=== PATIENT | male | born 1960 | race Caucasian/White ===

== ENCOUNTER 2017-06-14 15:26 | Inpatient (IN) ==
[2017-06-14] MEDS ORDERED: 0.9 % SODIUM CHLORIDE 1,000 ML IV ONE (15:45)
--- NOTE | 2017-06-14 16:02 | Emergency Department Note ---
Weakness HPI - General Chief complaint: Weakness Stated complaint: SOB, Fever, Weakness Time Seen by Provider: 06/14/17 16:00 Source: patient Mode of arrival: ambulatory Limitations: no limitations - History of Present Illness HPI Narrative: 56-year-old male is sent over from the dialysis unit with a history of fever of 102 while on dialysis. He denies any chest pain, he does state that he quit smoking 3 months ago he's been coughing ever since, does have a slight headache , no nausea or vomiting, no diarrhea denies abdominal pain he does still urinate once a day and he denies urinary symptoms. No other symptoms other than generalized weakness. MD Complaint: generalized weakness - Related Data Home Medications Medication Instructions Recorded Confirmed Cyclobenzaprine HCl 10 mg PO HS 10/13/14 12/05/15 Lasix 40 mg PO BID 10/13/14 12/05/15 Levothyroxine 75 mcg PO DAILY 10/13/14 12/05/15 Nitrostat 0.4 mg SL Q5MIN 10/13/14 12/05/15 Proair Hfa 1 - 2 puff IH Q5HP PRN 10/13/14 12/05/15 Hailee-Lamont Tablet 1 tab PO DAILY 10/13/14 12/05/15 Senna 100 mg PO BID 10/13/14 12/05/15 Tamsulosin 0.4 mg PO DAILY 10/13/14 12/05/15 Venlafaxine 1 tab PO BID 10/13/14 12/05/15 amLODIPine 10 mg PO DAILY 10/13/14 12/05/15 Previous Rx's Medication Instructions Recorded Gabapentin [Neurontin] 300 mg PO TID #90 cap 10/14/14 Ondansetron [Zofran Odt] 4 mg PO Q4-6H PRN #10 tablet 10/03/15 HYDROmorphone HCL [Dilaudid] 4 mg PO Q4H #12 tablet 12/05/15 Cefuroxime [Ceftin] 500 mg PO Q12 #20 tablet 02/03/16 ropinirole 0.5 mg tablet 0.5 mg PO QHS #30 tab 07/04/16 omeprazole 20 mg capsule,delayed 20 mg PO QDAY #30 cap 12/03/16 release cinacalcet 30 mg tablet 30 mg PO QDAY #30 tab 03/18/17 carvedilol 12.5 mg tablet 12.5 mg PO BIDCC 30 Days #60 tab 05/29/17 Allergies Allergy/AdvReac Type Severity Reaction Status Date / Time No Known Drug Allergies Allergy Verified 05/21/16 10:37 Review of Systems All systems ED: reviewed and negative except as stated. Constitutional: Reports: fever, chills ENT ED: Denies: ear pain, throat pain Cardiovascular: Denies: chest pain, palpitations Respiratory: Reports: shortness of breath, cough Gastrointestinal: Denies: abdominal pain, nausea, vomiting Genitourinary: Denies: dysuria Musculoskeletal: Reports: back pain. 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 Absent: tenderness , meningismus, lymphadenopathy, thyromegaly Chest: Present: normal inspection, symmetric chest wall rise. Absent: tenderness Respiratory: Present: normal lung sounds bilaterally. Absent: respiratory distress, wheezes, accessory muscle use Cardiovascular: Present: regular rate, normal rhythm, tachycardia, normal heart sounds Abdominal: Present: soft, normal bowel sounds. Absent: distention, tenderness, guarding : Present: normal inspection Extremities: Present: normal inspection, full ROM. Absent: tenderness Back: Present: normal inspection. Absent: CVA tenderness (R), CVA tenderness (L ), paraspinal tenderness, spinous process tenderness, vertebral tenderness Neurological: Present: alert, oriented X3, CN II-XII intact Psychiatric: Present: normal affect Skin: Present: warm, dry, intact. Absent: rash Course Vital Signs Temperature 99.1 F H 06/14/17 15:28 Pulse Rate 101 H 03/17/18 15:28 Respiratory Rate 30 H 06/14/17 15:28 Blood Pressure 109/44 06/14/17 15:28 Pulse Oximetry (%) 89 L 06/14/17 15:28 Temperature 101.5 F H 06/14/17 18:11 Pulse Rate 92 H 06/14/17 18:04 Respiratory Rate 17 06/14/17 18:04 Blood Pressure 159/115 06/14/17 18:04 Pulse Oximetry (%) 97 06/14/17 18:04 Weakness - MDM Narrative Medical decision making narrative: laboratory studies showing a white count of 8000, however left shift and his lactic acid was elevated. Discussed with , and he will need to be hospitalized for further workup, monitoring. He did complete his dialysis, they chance 3-1/2 L of fluid, we gave him a liter of saline while he was here and his blood pressure was stable. Final diagnosis is fever undetermined etiology, sepsis by criteria plan he was started on antibiotics in the department, blood cultures were drawn, discussed with our hospitalist. CT scan reviewed. - Lab Data Lab results reviewed: Yes I reviewed the patient's lab results. Result diagrams: 06/14/17 15:40 06/14/17 15:40 Lab Results 06/14/17 06/14/17 06/14/17 Range/Units 15:40 15:40 15:40 WBC 8.3 (4.5-11.0) K/mcL RBC 3.00 L (4.50-5.90) M/mcL Hgb 10.5 L (13.5-16.5) g/dL Hct 30.4 L (41.0-55.0) % MCV 101.2 H (80.0-100.0) fL MCH 34.9 H (26.0-34.0) pg MCHC 34.4 (31.0-36.0) g/dL RDW 14.9 H (11.5-14.5) % Plt Count 141 (140-440) K/mcL MPV 6.7 L (7.4-10.4) fL Total Counted 100 Seg Neutrophils % 77 (38-78) % Band Neutrophils % 14 H (0-10) % Lymphocytes % 2 L (15-49) % Monocytes % (Manual) 6 (1-12) % Metamyelocytes % 1 H (0-0) % Platelet Estimate Normal (NORMAL) RBC Morphology Abnorm A (NORMAL) Polychromasia 1+ A (NONE SEEN) Macrocytosis 1+ A (NONE SEEN) VBG Lactic Acid 3.4 H (0.5-2.2) mmol/L Sodium 136 (133-145) mmol/L Potassium 4.1 (3.3-5.1) mmol/L Chloride 89 L (96-108) mmol/L Carbon Dioxide 28 (22-30) mmol/L Anion Gap 19.0 H (8-16) BUN 19 (6-20) mg/dl Creatinine 3.9 H (0.7-1.2) mg/dl GFR Calculation 16 Glucose 136 H (70-105) mg/dL Calcium 9.6 (8.6-10.4) mg/dl Total Bilirubin 0.7 (0.0-1.0) mg/dL AST 23 (0-37) U/l ALT 24 (0-40) U/l Alkaline Phosphatase 118 H (39-117) U/L C-Reactive Protein (0.0-0.8) mg/dl Total Protein 8.3 (5.9-8.4) gm/dL Albumin 4.9 (3.2-5.2) gm/dL Globulin 3.4 (2.2-3.7) gm/dL Albumin/Globulin Ratio 1.4 (1.0-2.3) Urine Color Urine Appearance Urine pH (5.0-9.0) Ur Specific [place] (1.000-1.035) Urine Protein (NEG) mg/dL Urine Glucose (UA) (NEG) mg/dL Urine Ketones (NEG) mg/dL Urine Occult Blood (<0.03) mg/dL Urine Nitrate (NEG) Urine Bilirubin (NEG) mg/dL Urine Urobilinogen (NEG) mg/dL Ur Leukocyte Esterase (NEG) /uL Urine RBC (0-1) /hpf Urine WBC (0-4) /hpf Ur Squamous Epith Cells (0-4) /hpf Urine Bacteria (0) /hpf Urine Sperm (ABSENT) /hpf Ur Culture Indicated? 06/14/17 06/14/17 Range/Units 15:40 17:16 WBC (4.5-11.0) K/mcL RBC (4.50-5.90) M/mcL Hgb (13.5-16.5) g/dL Hct (41.0-55.0) % MCV (80.0-100.0) fL MCH (26.0-34.0) pg MCHC (31.0-36.0) g/dL RDW (11.5-14.5) % Plt Count (140-440) K/mcL MPV (7.4-10.4) fL Total Counted Seg Neutrophils % (38-78) % Band Neutrophils % (0-10) % Lymphocytes % (15-49) % Monocytes % (Manual) (1-12) % Metamyelocytes % (0-0) % Platelet Estimate (NORMAL) RBC Morphology (NORMAL) Polychromasia (NONE SEEN) Macrocytosis (NONE SEEN) VBG Lactic Acid (0.5-2.2) mmol/L Sodium (133-145) mmol/L Potassium (3.3-5.1) mmol/L Chloride (96-108) mmol/L Carbon Dioxide (22-30) mmol/L Anion Gap (8-16) BUN (6-20) mg/dl Creatinine (0.7-1.2) mg/dl GFR Calculation Glucose (70-105) mg/dL Calcium (8.6-10.4) mg/dl Total Bilirubin (0.0-1.0) mg/dL AST (0-37) U/l ALT (0-40) U/l Alkaline Phosphatase (39-117) U/L C-Reactive Protein 3.4 H (0.0-0.8) mg/dl Total Protein (5.9-8.4) gm/dL Albumin (3.2-5.2) gm/dL Globulin (2.2-3.7) gm/dL Albumin/Globulin Ratio (1.0-2.3) Urine Color Yellow Urine Appearance Hazy Urine pH 7.0 (5.0-9.0) Ur Specific [place] 1.016 (1.000-1.035) Urine Protein 100 A (NEG) mg/dL Urine Glucose (UA) 150 A (NEG) mg/dL Urine Ketones Neg (NEG) mg/dL Urine Occult Blood Neg (<0.03) mg/dL Urine Nitrate Neg (NEG) Urine Bilirubin Neg (NEG) mg/dL Urine Urobilinogen Neg (NEG) mg/dL Ur Leukocyte Esterase Neg (NEG) /uL Urine RBC 23 H (0-1) /hpf Urine WBC 6 H (0-4) /hpf Ur Squamous Epith Cells < 1 (0-4) /hpf Urine Bacteria 0 (0) /hpf Urine Sperm Present A (ABSENT) /hpf Ur Culture Indicated? Yes - Radiology Data Radiology results reviewed: Yes I reviewed the patient's radiology results. Disposition Pt seen by DIGITAL MARKETING ASSOCIATE/PA only: No Clinical Impression: Sepsis, Renal failure, ESRD (end stage renal disease) on dialysis Disposition: Xfer As Inpt ([facility]) Condition: Fair
[2017-06-14] MEDS ORDERED: ACETAMINOPHEN 325 MG TABLET PO ONE (16:04)
[2017-06-14 16:13] LABS: Mean Cell Volume 101.2 fL (80.0-100.0); Mean Corpuscular HGB Conc 34.4 g/dL (31.0-36.0); Mean Corpuscular Hemoglobin 34.9 pg (26.0-34.0); Platelet Count 141 K/mcL (140-440); Red Cell Distribution Width 14.9 % (11.5-14.5)
--- NOTE | 2017-06-14 16:15 | XRay Report ---
INDICATION: Fever. Difficulty breathing. TECHNIQUE: AP chest x-ray,portable semiupright COMPARISON: Previous examinations dated 05/22/2016, 12/05/2015 FINDINGS:Previous median sternotomy. Lungs are negative. No parenchymal infiltrate or mass. Mild cardiomegaly is unchanged. No pulmonary edema. No pulmonary congestion. No evidence for congestive heart failure. No pleural fluid. [place] and mediastinum are negative IMPRESSION: 1. Cardiomegaly, unchanged 2. No acute abnormality. Interpreted and Authenticated by: Rivera Diop 06/14/17
[2017-06-14 16:41] LABS: ALT/SGPT 24 U/l (0-40); Albumin 4.9 gm/dL (3.2-5.2); Albumin/Globulin Ratio 1.4 (1.0-2.3); Alkaline Phosphatase 118 U/L (39-117); Blood Urea Nitrogen 19 mg/dl (6-20)
[2017-06-14 16:42] LABS: Band Neutrophils % 14 % (0-10); Lymphocytes % 2 % (15-49); Macrocytosis 1+ (NONE SEEN); Metamyelocytes % 1 % (0-0); Monocytes % (Manual) 6 % (1-12); Platelet Estimate NORMAL (NORMAL); RBC Morphology ABNORM (NORMAL); Segmented Neutrophils % 77 % (38-78)
[2017-06-14] MEDS ORDERED: cefTRIAXone 1 GM VIAL IV ONE ×2 (16:50→21:30)
[2017-06-14] MEDS ORDERED: IBUPROFEN 600 MG TABLET PO ONE (17:32)
[2017-06-14 17:45] LABS: Appearance,Urine HAZY; Color,Urine YELLOW; Protein,Urine 100 mg/dL (NEG); Specific Gravity,Urine 1.016 (1.000-1.035)
[2017-06-14 17:46] LABS: Bacteria,Urine 0 /hpf (0); Bilirubin,Urine NEG (NEG); Glucose,Urine (UA) 150 mg/dL (NEG); Leukocyte Esterase,Urine NEG /uL (NEG); Sperm,Urine PRESENT /hpf (ABSENT); Urine Blood NEG mg/dL (<0.03); Urine RBC 23 /hpf (0-1); Urine Squamous Epithelial Cell < 1 /hpf (0-4); Urine WBC 6 /hpf (0-4); Urobilinogen,Urine NEG (NEG)
--- NOTE | 2017-06-14 18:04 | Cat Scan Report ---
CLINICAL INFORMATION: Weakness. Dyspnea. Kidney disease. COMPARISON: 12/05/2015 TECHNIQUE: Axial images were obtained through the abdomen and pelvis. Sagittally and coronally reformatted images. FINDINGS: Lung bases are negative. No parenchymal infiltrate or mass. No pleural fluid. There is mild cardiomegaly. No pericardial fluid. Liver is negative to limits of noncontrast enhanced examination. There are surgical clips in the gallbladder fossa. No dilated bile ducts. Spleen is enlarged. Spleen measures 15.1 x 12.5 x 5.0 cm. Spleen is slightly larger than on previous examination. Negative pancreas. No pancreatic mass. No peripancreatic abnormality. Negative kidneys. There are vascular calcifications in both kidneys. No hydronephrosis. No detectable mass. There is extensive calcification of the abdominal aorta. No abdominal aortic aneurysm. Common iliac arteries, external iliac arteries, common femoral arteries are calcified. Colon is negative. No diverticulitis. No detectable colonic mass. No appendicitis. No mechanical small bowel obstruction. There is a 3 cm umbilical hernia defect. There is mesenteric fat within this hernia. No herniated bowel. No retroperitoneal or mesenteric adenopathy. No biliary or portal venous gas. No pneumatosis. No intra-abdominal abscess or free pelvic fluid No lumbar compression fractures. There are bilateral L5 pars defects without significant spondylolisthesis. Sacrum and pelvis are negative. IMPRESSION: 1. Mild splenomegaly 2. Small umbilical hernia containing only mesenteric fat 3. Extensive calcified atherosclerotic plaque. No abdominal aortic aneurysm The exam was performed using radiation dose optimization techniques including, but not limited to, automated exposure control, adjustment of the mA and/or kV according to patient size and use of iterative reconstruction technique. Interpreted and Authenticated by: Rivera Diop 06/14/17
[2017-06-14 18:07] LABS: C-Reactive Protein 3.4 mg/dl (0.0-0.8)
[2017-06-14] MEDS ORDERED: VANCOMYCIN 1,500 MG in 0.9 % SODIUM CHLORIDE 500 ML IV ONE (18:47)
--- NOTE | 2017-06-14 18:56 | Internal Med History&Physical ---
Medical - H&P: HPI Patient information: Note initiated : 06/14/17 at 6:52 pm Service Date, if different from initiated Date: [] Patient: Hardeep Diaz a 56 y/o M admitted on for SOB, Fever, Weakness. Chief Complaint: [] History of present illness: Mr. Diaz is a 56 year old Male with h/o End stage renal disease, who presents to the ER from the dialysis unit with complaints of fever and weakness. The patient reports he was doing okay until last night, when he woke up this morning he noticed that he was short of breath and having fever and chills, he also had back pain and pain in the left side of the hip associated with numbness in the left leg. The patient notes that this fever is associated with chills, he has been having some chronic cough. The patient went for his dialysis session, but he noted him to be febrile. He was also noted to be short of breath he was therefore sent to the emergency room after he completed his dialysis session for evaluation. In the ER the patient was noted to be febrile, with a temperature of more than 103. Tachycardic heart rate between 9200, blood pressure was normal, he was saturating more than 90% on 2 L of oxygen, respiratory between 20-30. Chest x- ray was reported as negative. The patient had a normal WBC count but had more than 10% bands hemoglobin 10.5 platelet 141. Basic metabolic profile unremarkable, UA had some RBCs and a few WBCs, the patient underwent a CT abdomen and pelvis without contrast which was unrevealing for an acute process. The patient notes that the pain in the left hip is in the posterior aspect radiates down the leg was with movement better with rest. This is associated with decreased sensations in the entire left leg. He also attributes weakness in the left leg. He is unable to move the left leg however it is not sure during the history process whether there is true weakness or weakness secondary to pain. The patient also reported tingling in the medial three fingers of his palm. Patient was presented to the hospital for further management. During my evaluation in the ED I was concerned about this patient to have a possible epidural or paraspinal abscess or possibly hip arthritis. The patient is a dialysis patient and therefore we will try and get a stat MRI scan of the spine as well as the left hip as soon as possible Given that the patient has neurological weakness which he at least which is new , in the left leg, the patient would warrant an emergent evaluation. We do not have an commercial tire service technician available in this hospital at this time patient is okay to go to [facility] for this study done. According to the ED physician blood cultures were drawn, Rocephin 1 g given. I will add 1500 mg of vancomycin - Constitutional Constitutional: Present: chills, fatigue, fever(s) - EENT Eyes: Absent: diplopia, loss of vision, photophobia, other visual disturbances - Cardiovascular Cardiovascular: Present: diaphoresis, dyspnea on exertion. Absent: chest pain, palpatations, paroxysmal nocturnal dyspnea, pedal edema, slow heart rate, syncope - Respiratory Respiratory: Present: cough (chronic, ), dyspnea on exertion. Absent: wheezing , chest congestion - Gastrointestinal Gastrointestinal: Absent: constipation, dyspepsia, loose stools, nausea, vomiting - Genitourinary Genitourinary: Absent: urinary frequency (pt has minimal urine due to esrd status ), urinary hesitancy, urinary incontinence, urinary urgency - Musculoskeletal Musculoskeletal: Present: back pain, limited range of motion (left hip), radiating pain into limb, tingling - Integumentary Integumentary: Absent: wounds, jaundice - Neurological Neurological: Present: dizziness. Absent: headache(s), syncope, tremor(s), weakness - Psychiatric Psychiatric: Present: anxiety. Absent: confusion, depression - Endocrine Endocrine: Absent: polydipsia, polyphagia, polyuria - Hematologic/Lymphatic Hematologic/Lymphatic: Absent: easy bleeding - Allergic/Immunologic Allergic/Immunologic: Absent: uticaria, lip swelling Medical - H&P: PMH Medical history: Medical History Paronychia (Acute) Blister of great toe of left foot (Acute) Nausea & vomiting (Acute) Chest pain (Acute) Narcotic withdrawal (Acute) ESRD (end stage renal disease) on dialysis (Acute) Orbital cellulitis on left (Acute) Acute exacerbation of chronic obstructive airways disease (Acute) Congestive heart failure (Acute) Elevated troponin (Acute) Uncontrolled diabetes mellitus (Acute) Renal failure (Chronic) Neuropathy (Chronic) Coronary artery disease (Chronic) Urinary tract infection (Chronic) 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) Encounter for Weeks catheter removal (Chronic) Surgical history: h/o CABG Family history: reviewed and not pertinent Social history: Lives by himself Ex-smoker quit 3 months ago Denies any active substance use is trying to get a transplant however does have 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 Medical - H&P: Meds Home Medications Medication Instructions Recorded Confirmed Type Cyclobenzaprine HCl 10 mg PO HS 10/13/14 12/05/15 History Lasix 40 mg PO BID 10/13/14 12/05/15 History Levothyroxine 75 mcg PO DAILY 10/13/14 12/05/15 History Nitrostat 0.4 mg SL Q5MIN 10/13/14 12/05/15 History Proair Hfa 1 - 2 puff IH Q5HP PRN 10/13/14 12/05/15 History Hailee-Lamont Tablet 1 tab PO DAILY 10/13/14 12/05/15 History Senna 100 mg PO BID 10/13/14 12/05/15 History Tamsulosin 0.4 mg PO DAILY 10/13/14 12/05/15 History Venlafaxine 1 tab PO BID 10/13/14 12/05/15 History amLODIPine 10 mg PO DAILY 10/13/14 12/05/15 History Gabapentin [Neurontin] 300 mg PO TID #90 cap 10/14/14 12/05/15 Rx Ondansetron [Zofran Odt] 4 mg PO Q4-6H PRN #10 tablet 10/03/15 12/05/15 Rx Cefuroxime [Ceftin] 500 mg PO Q12 #20 tablet 02/03/16 Rx ropinirole 0.5 mg tablet 0.5 mg PO QHS #30 tab 07/04/16 Rx omeprazole 20 mg capsule,delayed 20 mg PO QDAY #30 cap 12/03/16 Rx release cinacalcet 30 mg tablet 30 mg PO QDAY #30 tab 03/18/17 Rx carvedilol 12.5 mg tablet 12.5 mg PO BIDCC 30 Days #60 tab 05/29/17 Rx Allergies Allergy/AdvReac Type Severity Reaction Status Date / Time No Known Drug Allergies Allergy Verified 05/21/16 10:37 Medical - H&P: Exam - Constitutional Vitals: Temp Pulse Resp BP Pulse Ox 101.5 F H 95 H 20 117/49 92 06/14/17 18:11 06/14/17 18:32 06/14/17 18:32 06/14/17 18:32 06/14/17 18:32 Exam: GENERAL: The patient is a well-developed, well-nourished in no apparent distress. Is alert and oriented x3. morbidly obese, febrile and flushed VITAL SIGNS: Reviewed and as noted elsewhere. HEENT: Head is normocephalic and atraumatic. Extraocular muscles are intact. Pupils are equal, round, and reactive to light. Nares appeared normal. Mouth appears any without lesions. Mucous membranes are dry NECK: Normal to inspection, Supple, No lymphadenopathy or thyromegaly. LUNGS: Air entry equal on both sides, no wheezing, crackles or rhonchi noted. No accessory muscles of respiration HEART: Regular rate and rhythm normal, S1 and S2 heard, no Gallop, S3 or Rub Noted, No Gross murmur heard. ABDOMEN: Soft, nontender, and nondistended. Positive bowel sounds. No hepatosplenomegaly was noted. EXTREMITIES: No cyanosis, clubbing, rash, lesions or edema. NEUROLOGIC: Cranial nerves II through XII are grossly intact. left leg strength 3/5 in ankle, knee and hip joints, right leg normal strength. LEft leg decreased sensation to light and dep touch compared to right leg. left hand had numbness on the medial three fingers along the distribution of median nerve, rest of the hand and strength was normal. No facial weakness, no dysarthria, strength in both upper extremity is normal no spinal tenderness, sone tenderness on the left lower back lateral to the spine, over si joint. PSYCHIATRIC: Normal affect, Normal Mood. Appropriate Behavior. SKIN: No ulceration or wounds noted, No jaundice, No rash noted. Medical - H&P: Reslt - Labs CBC & Chem 7: 06/14/17 15:40 06/14/17 15:40 Labs: Short CBC 06/14/17 Range/Units 15:40 WBC 8.3 (4.5-11.0) K/mcL Hgb 10.5 L (13.5-16.5) g/dL Hct 30.4 L (41.0-55.0) % Plt Count 141 (140-440) K/mcL BMP 06/14/17 15:40 Sodium 136 Potassium 4.1 Chloride 89 L Carbon Dioxide 28 BUN 19 Creatinine 3.9 H Glucose 136 H Calcium 9.6 Liver Function 06/14/17 Range/Units 15:40 Total Bilirubin 0.7 (0.0-1.0) mg/dL AST 23 (0-37) U/l ALT 24 (0-40) U/l Alkaline Phosphatase 118 H (39-117) U/L Albumin 4.9 (3.2-5.2) gm/dL Urine 06/14/17 Range/Units 17:16 Urine Color Yellow Urine Appearance Hazy Urine pH 7.0 (5.0-9.0) Ur Specific [place] 1.016 (1.000-1.035) Urine Protein 100 A (NEG) mg/dL Urine Glucose (UA) 150 A (NEG) mg/dL Medical - H&P: A/P - Narrative A/P Narrative: A/P Sepsis Lactic Acidosis Back pain/ Hip pain with new onset neurological weakness HTN CAD HLD DM h/o TIA in past Plan Given new onset weakness high-grade fever get a stat imaging. If needed we will call the spine surgeon for an urgent evaluation, the patient has high risk for bacteremia given that he is end-stage renal disease on dialysis. IV Rocephin 2 g IV vancomycin for now. IV fluids Await results of blood cultures, he is cleared antibiotics based on sensitivity Consider echocardiogram if patient noted to be bacteremic Trend lactate Resume home meds when verified Monitor on telemetry Insulin for glucose control using sliding scale Consult nephrology for ongoing dialysis based on the chest x-ray and electrolytes there is no urgent need for dialysis tonight DVT prophylaxis with heparin Carbohydrate and renal diet She does full code
[2017-06-14] MEDS ORDERED: VANCOMYCIN 500 MG VIAL ONE (19:11)
[2017-06-14] MEDS ORDERED: VANCOMYCIN PER PHARMACY IV ONE (20:44)
[2017-06-14] MEDS ORDERED: DEXTROSE 31 GM ORAL.SUSP PO PRN (20:44)
[2017-06-14] MEDS ORDERED: DEXTROSE 50% 50 ML VIAL IV PRN (20:44)
[2017-06-14] MEDS ORDERED: NALOXONE HCL 0.4 MG/ML VIAL IV PRN (20:44)
[2017-06-14] MEDS ORDERED: 0.9 % SODIUM CHLORIDE 1,000 ML IV SCH (20:44)
[2017-06-14] MEDS ORDERED: ONDANSETRON 4 MG/2 ML VIAL IV PRN (20:44)
[2017-06-14] MEDS ORDERED: GABAPENTIN 300 MG CAPSULE PO ONE (21:27)
[2017-06-14] MEDS: 0.9 % SODIUM CHLORIDE 10 ML SYRINGE IV SCH ×2 (22:08→23:16)
[2017-06-14] MEDS: oxyCODONE HCL 5 MG TABLET PO PRN (22:08)
[2017-06-14] MEDS: HEPARIN 5,000 UNIT/ML VIAL SQ SCH (22:08)
[2017-06-14] MEDS: CYCLOBENZAPRINE 10 MG TABLET PO SCH (22:10)
[2017-06-14] MEDS: INSULIN LISPRO 1 UNIT/0.01 ML UNIT SQ SCH (22:11)
[2017-06-14] MEDS: IPRATROPIUM/ALBUTEROL 3 ML AMPUL.NEB NEB SCH ×2 (23:14→23:15)
[2017-06-14] MEDS: ACETAMINOPHEN 325 MG TABLET PO PRN (23:58)
[2017-06-15] MEDS: oxyCODONE HCL 5 MG TABLET PO PRN ×3 (05:27→21:28)
[2017-06-15 06:24] LABS: Basophils # (Auto) 0 K/mcL (0.0-0.3); Basophils % (Auto) 0.2 % (0.0-2.0); Eosinophils # (Auto) 0 K/mcL (0.0-0.7); Eosinophils % (Auto) 0 % (0.0-7.0); Granulocytes % (Auto) 92.2 % (38.0-78.0); Lymphocytes # (Auto) 0.2 K/mcL (1.5-4.8); Lymphocytes % (Auto) 2.3 % (15.5-49.0); Mean Cell Volume 101.8 fL (80.0-100.0); Mean Corpuscular HGB Conc 34.9 g/dL (31.0-36.0); Mean Corpuscular Hemoglobin 35.6 pg (26.0-34.0); Monocytes # (Auto) 0.4 K/mcL (0.1-0.9); Monocytes % (Auto) 5.3 % (1.0-12.0); Platelet Count 106 K/mcL (140-440); RBC 2.28 M/mcL (4.50-5.90); Red Cell Distribution Width 15.5 % (11.5-14.5)
[2017-06-15 06:49] LABS: ALT/SGPT 27 U/l (0-40); Albumin 3.6 gm/dL (3.2-5.2); Albumin/Globulin Ratio 1.3 (1.0-2.3); Alkaline Phosphatase 80 U/L (39-117); Bilirubin,Direct < 0.2 mg/dL (0.0-0.3); Blood Urea Nitrogen 38 mg/dl (6-20); Gamma Glutamyl Transpeptidase 29 U/L (8-61); Uric Acid 4.2 mg/dL (2.5-8.0)
[2017-06-15] MEDS ORDERED: VANCOMYCIN PER PHARMACY IV SCH (07:15)
--- NOTE | 2017-06-15 08:32 | Nephrology Consult Note ---
History of Present Illness - Reason for Consult Patient information: Note initiated : 06/15/17 at 8:29 am Patient: Hardeep Acosta 56 y/o M admitted on 06/14/17 for SOB, Fever, Weakness. Chief Complaint: Back pain. Consult date: 06/15/17 end stage renal disease, hyperkalemia Requesting physician: Rosa Arguelles - Chief Complaint Back pain - History of Present Illness Hardeep acosta is a 56-year-old male with end stage renal disease on chronic hemodialysis (through left arm AV fistula, on TTS, at [facility], followed by Dr. uH ), sent to ED after dialysis for fever and admitted on 06/14/17. He also had back and left leg pain. He had full dialysis yesterday. Review of Systems Constitutional: fever(s), weakness Nose, mouth and throat: no headache(s), no neck pain Cardiovascular: no chest pain, no palpatations Respiratory: dyspnea, no wheezing Gastrointestinal: no abdominal pain, no nausea Genitourinary: no dysuria, no hematuria Musculoskeletal: back pain, radiating pain into limb (left) Integumentary: rash (left thigh), no jaundice Neurological: no confusion, no focal weakness Psychiatric: no anxiety, no depression Endocrine: no cold intolerance, no heat intolerance Hematologic/Lymphatic: no easy bleeding, no easy bruising Allergic/Immunologic: no tongue swelling, no uticaria Past History Past medical history: Medical History Paronychia (Acute) Blister of great toe of left foot (Acute) Nausea & vomiting (Acute) Chest pain (Acute) Narcotic withdrawal (Acute) ESRD (end stage renal disease) on dialysis (Acute) Orbital cellulitis on left (Acute) Acute exacerbation of chronic obstructive airways disease (Acute) Congestive heart failure (Acute) Elevated troponin (Acute) Uncontrolled diabetes mellitus (Acute) Renal failure (Chronic) Neuropathy (Chronic) Coronary artery disease (Chronic) Urinary tract infection (Chronic) 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) Encounter for Weeks catheter removal (Chronic) Past surgical history: Left arm AV fistula. CABG. Past family history: No history of kidney disease in his parents. Past social history: Ex-smoker. Medications and Allergies Home Medications Medication Instructions Recorded Confirmed Type Cyclobenzaprine HCl 10 mg PO HS 10/13/14 06/14/17 History Lasix 40 mg PO DAILY 10/13/14 06/14/17 History Levothyroxine 25 mcg PO DAILY 10/13/14 06/14/17 History Proair Hfa 1 - 2 puff IH Q4HP PRN 10/13/14 06/14/17 History Hailee-Lamont Tablet 1 tab PO DAILY 10/13/14 06/14/17 History Tamsulosin 0.4 mg PO DAILY 10/13/14 06/14/17 History amLODIPine 5 mg PO DAILY 10/13/14 06/14/17 History Carvedilol [Coreg] 25 mg PO BIDCC 06/14/17 06/14/17 History Escitalopram [Lexapro] 20 mg PO DAILY 06/14/17 06/14/17 History Fluticasone/Salmeterol [Advair 1 puff INH BID 06/14/17 06/14/17 History 250-50 Diskus] Gabapentin [Neurontin] 300 mg PO BID 06/14/17 06/14/17 History Insulin Aspart [Novolog] 10 units SQ AC 06/14/17 06/14/17 History Phoslo 1 tablet PO 5XD 06/14/17 06/14/17 History Pramipexole [Mirapex] 0.375 mg PO HS 06/14/17 06/14/17 History Allergies Allergy/AdvReac Type Severity Reaction Status Date / Time No Known Drug Allergies Allergy Verified 05/21/16 10:37 Exam - Vital Signs Vital signs: Temp Pulse Resp BP Pulse Ox 99.0 F H 71 17 124/49 97 06/15/17 04:00 06/14/17 23:20 06/15/17 04:00 06/15/17 04:00 06/15/17 04:00 - General Appearance General appearance: appears started age EENT: mucous membranes moist Neck: supple Respiratory: clear Cardiology: normal S1, normal S2 Gastrointestinal: no tenderness Integumentary: warm and dry Neurologic: no focal deficit, alert and oriented x3 Musculoskeletal: no erythema, no cyanosis Psychiatric: mood/affect appropriate, cooperative Results - Lab Results 06/15/17 04:28 06/15/17 04:18 Most recent lab results Calcium 8.2 mg/dl (8.6-10.4) L 06/15/17 04:18 Phosphorus 4.6 mg/dL (2.7-4.5) H 06/15/17 04:18 Magnesium 1.8 mg/dL (1.6-2.5) 06/15/17 04:18 Assessment and Plan (1) ESRD (end stage renal disease) on dialysis The patient had full dialysis yesterday but has mild hyperkalemia, may need dialysis tomorrow. Status: Chronic Priority: Medium (2) Hyperkalemia, diminished renal excretion Status: Acute Priority: Medium (3) Anemia due to end stage renal disease Status: Chronic Priority: Medium
[2017-06-15] MEDS: HEPARIN 5,000 UNIT/ML VIAL SQ SCH ×2 (10:50→21:28)
[2017-06-15] MEDS: ESCITALOPRAM 20 MG TABLET PO SCH (10:50)
[2017-06-15] MEDS: INSULIN LISPRO 1 UNIT/0.01 ML UNIT SQ SCH ×4 (10:51→21:27)
[2017-06-15] MEDS ORDERED: SODIUM POLYSTYRENE SULFONATE 15 GM/60 ML SUSPENSION PO ONE (10:59)
[2017-06-15] MEDS: cefTRIAXone 2 GM in DEXTROSE 5% IN WATER 50 ML IV SCH (11:00)
[2017-06-15] MEDS: IBUPROFEN 600 MG TABLET PO PRN (11:42)
[2017-06-15] MEDS: IPRATROPIUM/ALBUTEROL 3 ML AMPUL.NEB NEB SCH ×3 (13:19→19:43)
[2017-06-15] MEDS: ACETAMINOPHEN 325 MG TABLET PO PRN (13:20)
[2017-06-15] MEDS: FLUTICASONE/SALMETEROL 250/50 INHALER #14 INH SCH ×2 (14:16→21:29)
--- NOTE | 2017-06-15 17:13 | Internal Med Progress Note ---
Medical - PN: Subj Patient information: Note initiated : 06/15/17 at 5:11 pm Service Date, if different from initiated Date: [] Patient: Hardeep Diaz a 56 y/o M admitted on 06/14/17 for SOB, Fever, Weakness. Chief Complaint: [] Interval history: Mr. Diaz is a 56 year old Male with h/o End stage renal disease, who presents to the ER from the dialysis unit with complaints of fever and weakness. The patient reports he was doing okay until last night, when he woke up this morning he noticed that he was short of breath and having fever and chills, he also had back pain and pain in the left side of the hip associated with numbness in the left leg. The patient notes that this fever is associated with chills, he has been having some chronic cough. The patient went for his dialysis session, but he noted him to be febrile. He was also noted to be short of breath he was therefore sent to the emergency room after he completed his dialysis session for evaluation. In the ER the patient was noted to be febrile, with a temperature of more than 103. Tachycardic heart rate between 9200, blood pressure was normal, he was saturating more than 90% on 2 L of oxygen, respiratory between 20-30. Chest x- ray was reported as negative. The patient had a normal WBC count but had more than 10% bands hemoglobin 10.5 platelet 141. Basic metabolic profile unremarkable, UA had some RBCs and a few WBCs, the patient underwent a CT abdomen and pelvis without contrast which was unrevealing for an acute process. The patient notes that the pain in the left hip is in the posterior aspect radiates down the leg was with movement better with rest. This is associated with decreased sensations in the entire left leg. He also attributes weakness in the left leg. He is unable to move the left leg however it is not sure during the history process whether there is true weakness or weakness secondary to pain. The patient also reported tingling in the medial three fingers of his palm. Patient was presented to the hospital for further management. During my evaluation in the ED I was concerned about this patient to have a possible epidural or paraspinal abscess or possibly hip arthritis. The patient is a dialysis patient and therefore we will try and get a stat MRI scan of the spine as well as the left hip as soon as possible Given that the patient has neurological weakness which he at least which is new , in the left leg, the patient would warrant an emergent evaluation. We do not have an engineering laboratory technician available in this hospital at this time patient is okay to go to [facility] for this study done. According to the ED physician blood cultures were drawn, Rocephin 1 g given. I will add 1500 mg of vancomycin June 15 Patient seen and examined, no acute overnight events, fever curve is better now. Patient's blood cultures positive for staph aureus. Repeat blood culture sent. She is on vancomycin and Rocephin at least for now. Neurology consulted no urgent need for dialysis MRI of the spine hip reviewed it is negative for any acute inflammatory pathology I also did had these images reviewed by our radiologist and he also concluded that there is no evidence of infection in the hip spine or the SI joint I am unable to explain the patient's left-sided pain or weakness but this could be an exacerbation of chronic arthritis of the patient has had for many years Echocardiogram was performed there is no evidence of endocarditis on transthoracic echo. Ultrasound of the left upper extremity duplex is pending clinically there is no evidence of cellulitis at the dialysis access site If the patient responds to therapy he will at least need 4 weeks of IV antibiotics with vancomycin or penicillin depending upon the sensitivity Should he remain persistently bacteremic the patient will benefit from getting a tagged WBC scan and a transesophageal echo Pertinent ROS: Denies headache, dizziness Denies chest pain, palpitations Denies cough or shortness of breath Denies abdominal pain, nausea or vomiting. Left hip pain and lower back pain present unchanged since yesterday - Constitutional Vitals: Vital Signs Temp Pulse Resp BP Pulse Ox 97.8 F 72 18 117/56 97 06/15/17 12:00 06/15/17 13:27 06/15/17 13:27 06/15/17 12:00 06/15/17 13:27 Period Temp Pulse Resp BP Sys/Jenkins Pulse Ox Last 24 Hr 97.8 F-101.5 F 64-95 15-28 92-159/41-115 92-99 Intake and Output 06/15/17 06/15/17 06/15/17 05:59 13:59 21:59 Intake Total 843 / 843 50 / 50 Balance 843 / 843 50 / 50 Weight 214 lb 11.684 oz Patient Weight 06/16/17 05:59 Weight 214 lb 11.684 oz Intake & Output: Intake & Output 06/15/17 06/15/17 06/15/17 05:59 13:59 21:59 Intake Total 843 / 843 50 / 50 Balance 843 / 843 50 / 50 Weight 214 lb 11.684 oz Intake: IV 483 / 483 50 / 50 Rocephin 2 gm In Dextrose 5% in 50 / 50 Water 50 ml @ 100 mls/hr IV Q24H [facility] Rx#:[id number] Oral 360 / 360 Other: Meal katharine crackers, fruit cup Percent of Meal Consumed 100% Feeding Ability Independent Exam: Constitutional; Afebrile, cooperative, alert, not in distress. Eyes- No icterus, , No periorbital swelling Ears- Ext ear normal, hearing normal to conversation. Neck- Midline trachea, supple Respiratory system: Air Entry equal on both sides, No crackles or wheezing, no rhonchi. CVS- Rate rhythm regular, S1,S2 heard, no gallop, no rub. Abdomen- Soft nontender abdomen, no organomegaly, no tenderness, no guarding or rigidity, HOSPITAL SALES REPRESENTATIVE- AOOx3, moving all extremities, exam unchanged since yesterday, still has some weakness in the left lower extremity this could be attributed to pain rather than actual weakness. Medical - PN: Obj Da - Labs CBC & Chem 7: 06/15/17 04:28 06/15/17 04:18 Labs: Abnormal Lab Results 06/15/17 06/15/17 06/14/17 04:28 04:18 17:16 RBC 2.28 L Hgb 8.1 L Hct 23.2 L MCV 101.8 H MCH 35.6 H RDW 15.5 H Plt Count 106 L MPV 6.9 L Gran % 92.2 H Lymph % (Auto) 2.3 L Lymph # (Auto) 0.2 L Band Neutrophils % Lymphocytes % Metamyelocytes % RBC Morphology Polychromasia Macrocytosis ESR VBG Lactic Acid Sodium 131 L Potassium 5.2 H Chloride 91 L Anion Gap BUN 38 H Creatinine 5.7 H* Glucose 266 H Calcium 8.2 L Phosphorus 4.6 H Alkaline Phosphatase C-Reactive Protein Triglycerides 270 H Urine Protein 100 A Urine Glucose (UA) 150 A Urine RBC 23 H Urine WBC 6 H Urine Sperm Present A 06/14/17 06/14/1706/14/18 15:40 15:40 15:40 RBC Hgb Hct MCV MCH RDW Plt Count MPV Gran % Lymph % (Auto) Lymph # (Auto) Band Neutrophils % Lymphocytes % Metamyelocytes % RBC Morphology Polychromasia Macrocytosis ESR 65 H VBG Lactic Acid 3.4 H Sodium Potassium Chloride Anion Gap BUN Creatinine Glucose Calcium Phosphorus Alkaline Phosphatase C-Reactive Protein 3.4 H Triglycerides Urine Protein Urine Glucose (UA) Urine RBC Urine WBC Urine Sperm 06/14/17 06/14/17 15:40 15:40 RBC 3.00 L Hgb 10.5 L Hct 30.4 L MCV 101.2 H MCH 34.9 H RDW 14.9 H Plt Count MPV 6.7 L Gran % Lymph % (Auto) Lymph # (Auto) Band Neutrophils % 14 H Lymphocytes % 2 L Metamyelocytes % 1 H RBC Morphology Abnorm A Polychromasia 1+ A Macrocytosis 1+ A ESR VBG Lactic Acid Sodium Potassium Chloride 89 L Anion Gap 19.0 H BUN Creatinine 3.9 H Glucose 136 H Calcium Phosphorus Alkaline Phosphatase 118 H C-Reactive Protein Triglycerides Urine Protein Urine Glucose (UA) Urine RBC Urine WBC Urine Sperm Meds: Medications Acetaminophen (Tylenol) 650 mg PO Q6HP PRN PRN Reason: PAIN/FEVER > 101 Last Admin: 06/15/17 13:20 Dose: 650 mg Albuterol/Ipratropium (Duoneb) 3 ml NEB Q6HRT [facility] Last Admin: 06/15/17 13:24 Dose: 3 ml Cyclobenzaprine HCl (Flexeril) 10 mg PO HS [facility] Last Admin: 06/14/17 22:10 Dose: 10 mg Dextrose (Dextrose 50%) 0 ml IV UD PRN PRN Reason: Hypoglycemia Diagnostic Test (Pha) (Accu-Chek) 1 each FS ACHS [facility] Last Admin: 06/15/17 11:40 Dose: 1 each Escitalopram Oxalate (Lexapro) 20 mg PO DAILY [facility] Last Admin: 06/15/17 10:50 Dose: 20 mg Glucose (Insta-Glucose) 15 gm PO PRN PRN PRN Reason: Hypoglycemia Heparin Sodium (Porcine) (Heparin) 5,000 unit SQ Q12 [facility] Last Admin: 06/15/17 10:50 Dose: 5,000 unit Ceftriaxone Sodium 2 gm/ (Dextrose) 50 mls @ 100 mls/hr IV Q24H [facility] Last Infusion: 06/15/17 11:35 Dose: Infused Ibuprofen (Motrin) 600 mg PO TIDP PRN PRN Reason: PAIN/FEVER > 101 Last Admin: 06/15/17 11:42 Dose: 600 mg Insulin Human Lispro (Humalog) 0 unit SQ ACHS [facility] PRN Reason: Protocol Last Admin: 06/15/17 11:42 Dose: 3 unit Naloxone HCl (Narcan) 0.1 mg IV Q2MIN PRN PRN Reason: Opiate Reversal Ondansetron HCl (Zofran) 4 mg IV Q4HP PRN PRN Reason: Nausea And Vomiting Oxycodone HCl (Roxicodone) 5 mg PO Q4HP PRN PRN Reason: Pain Last Admin: 06/15/17 10:51 Dose: 5 mg Fluticasone/Salmeterol (Advair 250-50 Diskus) 1 puff INH BID [facility] Last Admin: 06/15/17 14:16 Dose: Not Given Sodium Chloride (Saline Flush) 10 ml IV Q8 [facility] Last Admin: 06/14/17 23:16 Dose: 10 ml Vancomycin HCl (Vancomycin Per Pharmacy) 1 order IV UD [facility] Medical - PN: A/P - Time Spent With Patient Total time spent is greater than 50% in coordination of care (as documented) at patient's floor/unit and/or counseling patient: - Narrative A/P Narrative: A/P Sepsis Lactic Acidosis Back pain/ Hip pain with new onset neurological weakness HTN CAD HLD DM h/o TIA in past Hyperkalemia, potassium of 5.2 Plan Etiology of bacteremia is still pending, left upper extremity duplex ultrasound is pending, transthoracic echo was negative, MRI spine lumbosacral and left hip is negative. Patient has staph aureus in the blood continue IV Rocephin 2 g IV vancomycin for now. Lactic acidosis resolved, sepsis improving Await results of blood cultures, he is cleared antibiotics based on sensitivity Consider transesophageal echocardiogram if patient noted to be bacteremic Resume home meds when verified Monitor on telemetry Insulin for glucose control using sliding scale 1 dose of Kayexalate today Add ibuprofen for pain management, patient does not have much renal function Consult nephrology DVT prophylaxis with heparin Carbohydrate and renal diet She does full code Medical - PN: Qual - VTE Deep Vein Thrombosis/Pulmonary Embolism Present on Admission: No
[2017-06-15] MEDS: 0.9 % SODIUM CHLORIDE 10 ML SYRINGE IV SCH ×3 (17:21→21:34)
[2017-06-15] MEDS ORDERED: MAGNESIUM HYDROXIDE 30 ML ORAL.SUSP PO ONE (18:39)
[2017-06-15] MEDS ORDERED: MAGNESIUM HYDROXIDE 30 ML ORAL.SUSP ONE (19:15)
[2017-06-15] MEDS: CYCLOBENZAPRINE 10 MG TABLET PO SCH (21:29)
[2017-06-16] MEDS: IPRATROPIUM/ALBUTEROL 3 ML AMPUL.NEB NEB SCH ×3 (00:40→17:22)
[2017-06-16] MEDS: oxyCODONE HCL 5 MG TABLET PO PRN ×4 (02:33→20:19)
[2017-06-16 05:00] LABS: Basophils # (Auto) 0 K/mcL (0.0-0.3); Basophils % (Auto) 0.1 % (0.0-2.0); Eosinophils # (Auto) 0.1 K/mcL (0.0-0.7); Eosinophils % (Auto) 2.1 % (0.0-7.0); Granulocytes % (Auto) 82.9 % (38.0-78.0); Lymphocytes # (Auto) 0.4 K/mcL (1.5-4.8); Lymphocytes % (Auto) 5.5 % (15.5-49.0); Mean Corpuscular HGB Conc 34.5 g/dL (31.0-36.0); Mean Corpuscular Hemoglobin 35.2 pg (26.0-34.0); Monocytes # (Auto) 0.6 K/mcL (0.1-0.9); Monocytes % (Auto) 9.4 % (1.0-12.0); Platelet Count 96 K/mcL (140-440); RBC 2.14 M/mcL (4.50-5.90); Red Cell Distribution Width 15.5 % (11.5-14.5)
[2017-06-16 05:22] LABS: Vancomycin,Random 16.2 ug/mL
[2017-06-16] MEDS: 0.9 % SODIUM CHLORIDE 10 ML SYRINGE IV SCH ×3 (05:55→21:27)
[2017-06-16 05:57] LABS: ALT/SGPT 41 U/l (0-40); Albumin 3.6 gm/dL (3.2-5.2); Albumin/Globulin Ratio 1.2 (1.0-2.3); Alkaline Phosphatase 81 U/L (39-117); Bilirubin,Direct < 0.2 mg/dL (0.0-0.3); Blood Urea Nitrogen 64 mg/dl (6-20); Gamma Glutamyl Transpeptidase 28 U/L (8-61); Uric Acid 6.1 mg/dL (2.5-8.0)
--- NOTE | 2017-06-16 07:38 | Nephrology Progress Note ---
Subjective Patient information: Note initiated : 06/16/17 at 7:35 am Patient: Hardeep Diaz 56 y/o M admitted on 06/14/17 for SOB, Fever, Weakness. Chief Complaint: Left leg pain. Principal diagnosis: ESRD Interval history: Hardeep Diaz is a 56-year-old male with end stage renal disease on chronic hemodialysis (through left arm AV fistula, on TTS, at [facility], followed by Dr. Hu ), sent to ED after dialysis for fever and admitted on 06/14/17. Blood cultures growing gram positive cocci. Pertinent ROS: Feels about the same. Weakness. Left leg pain. Usual amount of edema. Objective - Vital Signs Vital signs: Vital Signs Temp Pulse Pulse Resp BP BP Pulse Ox 06/16/17 07:32 97.8 F 66 16 119/63 95 06/16/17 04:00 98.0 F 67 67 H 129/49 98 06/16/17 00:00 97.9 F 61 18 103/49 98 06/15/17 20:00 97.7 F 71 22 126/51 93 06/15/17 16:00 97.8 F 16 98/50 100 06/15/17 13:27 72 16 97 06/15/17 12:00 97.8 F 68 16 117/56 97 06/15/17 08:00 97.8 F 64 16 106/58 97 Intake and Output 06/15/17 06/16/17 06/16/17 21:59 05:59 13:59 Intake Total 120 / 120 740 / 740 Balance 120 / 120 740 / 740 Intake: Oral 120 / 120 740 / 740 Other: Meal Dinner Percent of Meal Consumed 100% # Bowel Movements 1 Weight 217 lb 14.4 oz Intake & Output: Intake & Output 06/15/17 06/16/17 06/16/17 21:59 05:59 13:59 Intake Total 120 / 120 740 / 740 Balance 120 / 120 740 / 740 Weight 217 lb 14.4 oz Intake: Oral 120 / 120 740 / 740 Other: Meal Dinner Percent of Meal Consumed 100% # Bowel Movements 1 - General Appearance General appearance: appears started age EENT: mucous membranes moist Neck: supple Respiratory: clear Cardiology: edema Integumentary: warm and dry Neurologic: alert and oriented x3 Musculoskeletal: no erythema, no cyanosis Psychiatric: mood/affect appropriate, cooperative - Lab 06/16/17 03:47 06/16/17 03:47 Most recent lab results Calcium 8.6 mg/dl (8.6-10.4) 06/16/17 03:47 Phosphorus 7.0 mg/dL (2.7-4.5) H* 06/16/17 03:47 Magnesium 2.2 mg/dL (1.6-2.5) 06/16/17 03:47 Assessment and Plan (1) ESRD (end stage renal disease) on dialysis Usual days TTS. Hemodialysis today for increased need due to sepsis. Status: Chronic Priority: Medium (2) Hyperkalemia, diminished renal excretion Status: Acute Priority: Medium (3) Anemia due to end stage renal disease Status: Chronic Priority: Medium (4) Gram-positive cocci bacteremia Management by hospitalist team. Status: Acute Priority: High
[2017-06-16] MEDS: INSULIN LISPRO 1 UNIT/0.01 ML UNIT SQ SCH ×4 (08:20→20:21)
[2017-06-16] MEDS: ESCITALOPRAM 20 MG TABLET PO SCH (08:20)
[2017-06-16] MEDS: cefTRIAXone 2 GM in DEXTROSE 5% IN WATER 50 ML IV SCH (08:21)
[2017-06-16] MEDS: HEPARIN 5,000 UNIT/ML VIAL SQ SCH ×2 (08:21→20:22)
[2017-06-16] MEDS: FLUTICASONE/SALMETEROL 250/50 INHALER #14 INH SCH ×2 (08:21→21:19)
[2017-06-16] MEDS: ACETAMINOPHEN 325 MG TABLET PO PRN ×3 (08:32→21:55)
--- NOTE | 2017-06-16 12:06 | Ultrasound Report ---
CLINICAL INFORMATION: Evaluate left arm dialysis fistula TECHNIQUE: Grayscale and color flow Doppler spectral imaging COMPARISON: None. FINDINGS: There is a left brachial artery to cephalic vein fistula. Fistula is patent without occlusion. There is a focal mild stenosis approximately 4 cm distal to the origin of the fistula. Stenosis is estimated at approximately 30% diameter. No hemodynamically significant stenosis. There is a 1 cm pseudoaneurysm arising from the fistula. No detectable hematoma. No other abnormality IMPRESSION: 1. Left brachial artery to cephalic vein fistula. Fistula is patent 2. Probable small pseudoaneurysm measuring approximately 10 mm 3. Estimated 30% diameter stenosis approximately 4 cm distal to the fistula origin. No hemodynamically significant stenosis. Interpreted and Authenticated by: Rivera Diop 06/16/17
[2017-06-16] MEDS ORDERED: IPRATROPIUM/ALBUTEROL 3 ML AMPUL.NEB NEB PRN (13:42)
[2017-06-16] MEDS ORDERED: VANCOMYCIN 1,500 MG in 0.9 % SODIUM CHLORIDE 500 ML IV ONE (16:00)
--- NOTE | 2017-06-16 16:32 | Internal Med Progress Note ---
Medical - PN: Subj Patient information: Note initiated : 06/16/17 at 4:22 pm Service Date, if different from initiated Date: [] Patient: Hardeep Diaz a 56 y/o M admitted on 06/14/17 for SOB, Fever, Weakness/ Sepsis, Renal Failure. Chief Complaint: [] Interval history: Mr. Diaz is a 56 year old Male with h/o End stage renal disease, who presents to the ER from the dialysis unit with complaints of fever and weakness. The patient reports he was doing okay until last night, when he woke up this morning he noticed that he was short of breath and having fever and chills, he also had back pain and pain in the left side of the hip associated with numbness in the left leg. The patient notes that this fever is associated with chills, he has been having some chronic cough. The patient went for his dialysis session, but he noted him to be febrile. He was also noted to be short of breath he was therefore sent to the emergency room after he completed his dialysis session for evaluation. In the ER the patient was noted to be febrile, with a temperature of more than 103. Tachycardic heart rate between 9200, blood pressure was normal, he was saturating more than 90% on 2 L of oxygen, respiratory between 20-30. Chest x- ray was reported as negative. The patient had a normal WBC count but had more than 10% bands hemoglobin 10.5 platelet 141. Basic metabolic profile unremarkable, UA had some RBCs and a few WBCs, the patient underwent a CT abdomen and pelvis without contrast which was unrevealing for an acute process. The patient notes that the pain in the left hip is in the posterior aspect radiates down the leg was with movement better with rest. This is associated with decreased sensations in the entire left leg. He also attributes weakness in the left leg. He is unable to move the left leg however it is not sure during the history process whether there is true weakness or weakness secondary to pain. The patient also reported tingling in the medial three fingers of his palm. Patient was presented to the hospital for further management. During my evaluation in the ED I was concerned about this patient to have a possible epidural or paraspinal abscess or possibly hip arthritis. The patient is a dialysis patient and therefore we will try and get a stat MRI scan of the spine as well as the left hip as soon as possible Given that the patient has neurological weakness which he at least which is new , in the left leg, the patient would warrant an emergent evaluation. We do not have an civil cadd technician available in this hospital at this time patient is okay [facility] for [facility] study done. According to the ED physician blood cultures were drawn, Rocephin 1 g given. I will add 1500 mg of vancomycin June 15 Patient seen and examined, no acute overnight events, fever curve is better now. Patient's blood cultures positive for staph aureus. Repeat blood culture sent. She is on vancomycin and Rocephin at least for now. Neurology consulted no urgent need for dialysis MRI of the spine hip reviewed it is negative for any acute inflammatory pathology I also did had these images reviewed by our radiologist and he also concluded that there is no evidence of infection in the hip spine or the SI joint I am unable to explain the patient's left-sided pain or weakness but this could be an exacerbation of chronic arthritis of the patient has had for many years Echocardiogram was performed there is no evidence of endocarditis on transthoracic echo. Ultrasound of the left upper extremity duplex is pending clinically there is no evidence of cellulitis at the dialysis access site If the patient responds to therapy he will at least need 4 weeks of IV antibiotics with vancomycin or penicillin depending upon the sensitivity Should he remain persistently bacteremic the patient will benefit from getting a tagged WBC scan and a transesophageal echo June 16-Patient doing well. Complains of persistent left lower extremity tenderness however in imaging did not reveal any evidence of localized abscess. On antibiotic coverage. Surveillance cultures negative so far. Primary cultures staph aureus. Sensitivities pending. continue source evaluation if persistent bacteremia. Patient will need a minimum 14 days antibiotic coverage from last negative culture. No overnight fever chills or concerns per staff. Tolerating diet and physical therapy along with hemodialysis. - Constitutional Vitals: Vital Signs Temp Pulse Resp BP Pulse Ox 97.6 F 89 16 167/75 96 06/16/17 14:46 06/16/17 14:46 06/16/17 11:58 06/16/17 14:46 06/16/17 11:58 Period Temp Pulse Resp BP Sys/Jenkins Pulse Ox Last 24 Hr 97 F-98.0 F 61-89 16-67 103-167/49-78 93-100 Intake and Output 06/16/17 06/16/17 06/16/17 05:59 13:59 21:59 Intake Total 740 / 740 50 / 50 Output Total 2600 / 2600 Balance 740 / 740 50 / 50 -2600 / -2600 Intake & Output: Intake & Output 06/16/17 06/16/17 06/16/17 05:59 13:59 21:59 Intake Total 740 / 740 50 / 50 Output Total 2600 / 2600 Balance 740 / 740 50 / 50 -2600 / -2600 Intake: IV 50 / 50 Rocephin 2 gm In Dextrose 5% in 50 / 50 Water 50 ml @ 100 mls/hr IV Q24H KEVIN Rx#:[id number] Oral 740 / 740 Output: Hemodialysis UF 2600 / 2600 Other: # Bowel Movements 1 General appearance: cooperative, no acute distress Exam: left lower extremity calf tenderness Anxious Nonlabored breathing nondistended abdomen Medical - PN: Obj Da - Labs CBC & Chem 7: 06/16/17 03:47 06/16/17 03:47 Labs: Abnormal Lab Results 06/16/17 06/16/17 06/15/17 03:47 03:47 04:28 RBC 2.14 L 2.28 L Hgb 7.5 L 8.1 L Hct 21.9 L 23.2 L MCV 102.0 H 101.8 H MCH 35.2 H 35.6 H RDW 15.5 H 15.5 H Plt Count 96 L 106 L MPV 7.1 L 6.9 L Gran % 82.9 H 92.2 H Lymph % (Auto) 5.5 L 2.3 L Lymph # (Auto) 0.4 L 0.2 L Band Neutrophils % Lymphocytes % Metamyelocytes % RBC Morphology Polychromasia Macrocytosis ESR VBG Lactic Acid Sodium Potassium Chloride 87 L Anion Gap 22.0 H BUN 64 H Creatinine 8.3 H* Glucose 170 H Calcium Phosphorus 7.0 H* AST 43 H ALT 41 H Alkaline Phosphatase Lactate Dehydrogenase 268 H C-Reactive Protein Triglycerides 343 H Urine Protein Urine Glucose (UA) Urine RBC Urine WBC Urine Sperm 06/15/17 06/14/17 06/14/17 04:18 17:16 15:40 RBC Hgb Hct MCV MCH RDW Plt Count MPV Gran % Lymph % (Auto) Lymph # (Auto) Band Neutrophils % Lymphocytes % Metamyelocytes % RBC Morphology Polychromasia Macrocytosis ESR VBG Lactic Acid Sodium 131 L Potassium 5.2 H Chloride 91 L Anion Gap BUN 38 H Creatinine 5.7 H* Glucose 266 H Calcium 8.2 L Phosphorus 4.6 H AST ALT Alkaline Phosphatase Lactate Dehydrogenase C-Reactive Protein 3.4 H Triglycerides 270 H Urine Protein 100 A Urine Glucose (UA) 150 A Urine RBC 23 H Urine WBC 6 H Urine Sperm Present A 06/14/17 06/14/17 06/14/17 15:40 15:40 15:40 RBC Hgb Hct MCV MCH RDW Plt Count MPV Gran % Lymph % (Auto) Lymph # (Auto) Band Neutrophils % Lymphocytes % Metamyelocytes % RBC Morphology Polychromasia Macrocytosis ESR 65 H VBG Lactic Acid 3.4 H Sodium Potassium Chloride 89 L Anion Gap 19.0 H BUN Creatinine 3.9 H Glucose 136 H Calcium Phosphorus AST ALT Alkaline Phosphatase 118 H Lactate Dehydrogenase C-Reactive Protein Triglycerides Urine Protein Urine Glucose (UA) Urine RBC Urine WBC Urine Sperm 06/14/17 15:40 RBC 3.00 L Hgb 10.5 L Hct 30.4 L MCV 101.2 H MCH 34.9 H RDW 14.9 H Plt Count MPV 6.7 L Gran % Lymph % (Auto) Lymph # (Auto) Band Neutrophils % 14 H Lymphocytes % 2 L Metamyelocytes % 1 H RBC Morphology Abnorm A Polychromasia 1+ A Macrocytosis 1+ A ESR VBG Lactic Acid Sodium Potassium Chloride Anion Gap BUN Creatinine Glucose Calcium Phosphorus AST ALT Alkaline Phosphatase Lactate Dehydrogenase C-Reactive Protein Triglycerides Urine Protein Urine Glucose (UA) Urine RBC Urine WBC Urine Sperm Meds: Medications Acetaminophen (Tylenol) 650 mg PO Q6HP PRN PRN Reason: PAIN/FEVER > 101 Last Admin: 06/16/17 16:02 Dose: 650 mg Albuterol/Ipratropium (Duoneb) 3 ml NEB Q6HP PRN PRN Reason: Shortness Of Breath Or Wheezing Cyclobenzaprine HCl (Flexeril) 10 mg PO HS [facility] Last Admin: 06/15/17 21:29 Dose: 10 mg Dextrose (Dextrose 50%) 0 ml IV UD PRN PRN Reason: Hypoglycemia Diagnostic Test (Pha) (Accu-Chek) 1 each FS ACHS [facility] Last Admin: 06/16/17 12:32 Dose: 1 each Escitalopram Oxalate (Lexapro) 20 mg PO DAILY [facility] Last Admin: 06/16/17 08:20 Dose: 20 mg Glucose (Insta-Glucose) 15 gm PO PRN PRN PRN Reason: Hypoglycemia Heparin Sodium (Porcine) (Heparin) 5,000 unit SQ Q12 [facility] Last Admin: 06/16/17 08:21 Dose: 5,000 unit Ceftriaxone Sodium 2 gm/ (Dextrose) 50 mls @ 100 mls/hr IV Q24H [facility] Last Infusion: 06/16/17 08:55 Dose: Infused Vancomycin HCl 1,500 mg/ (Sodium Chloride) 500 mls @ 333.3 mls/hr IV ONCE ONE Stop: 06/16/17 17:30 Last Admin: 06/16/17 16:08 Dose: 333.3 mls/hr Ibuprofen (Motrin) 600 mg PO TIDP PRN PRN Reason: PAIN/FEVER > 101 Last Admin: 06/15/17 11:42 Dose: 600 mg Insulin Human Lispro (Humalog) 0 unit SQ ACHS [facility] PRN Reason: Protocol Last Admin: 06/16/17 12:32 Dose: 1 unit Naloxone HCl (Narcan) 0.1 mg IV Q2MIN PRN PRN Reason: Opiate Reversal Ondansetron HCl (Zofran) 4 mg IV Q4HP PRN PRN Reason: Nausea And Vomiting Oxycodone HCl (Roxicodone) 5 mg PO Q4HP PRN PRN Reason: Pain Last Admin: 06/16/17 16:02 Dose: 5 mg Fluticasone/Salmeterol (Advair 250-50 Diskus) 1 puff INH BID [facility] Sodium Chloride (Saline Flush) 10 ml IV Q8 [facility] Last Admin: 06/16/17 05:55 Dose: 10 ml Vancomycin HCl (Vancomycin Per Pharmacy) 1 order IV UD [facility] Medical - PN: A/P - Time Spent With Patient Total time spent is greater than 50% in coordination of care (as documented) at patient's floor/unit and/or counseling patient: 15 - 24 minutes - Narrative A/P Narrative: A/P * Staph aureus bacteremia-unclear source. Negative MRI left hip/L/S spine. Negative Doppler ultrasound fistula site. negative transthoracic echo. Continue surveillance cultures.if continues to be positive will needtransesophageal echo/agged white blood cell scan * Sepsis secondary to above clinically improving. Continue antibiotic coverage- ceftriaxone/vancomycin * Back/hip pain along with left lower extremity tenderness-negative imaging so far * ESRD on hemodialysis managed by nephrology * history of CAD * Hyperlipidemia * DM type II * Hypertension * anxiety disorder on Lexapro * Pain management on oxycodone/cycle olanzapine Plan * hemodialysis per nephrology * Resume home meds * Insulin for glucose control using sliding scale * DVT prophylaxis with heparin Carbohydrate and renal diet Medical - PN: Qual - VTE Deep Vein Thrombosis/Pulmonary Embolism Present on Admission: No
[2017-06-16] MEDS: CARVEDILOL 12.5 MG TABLET PO SCH (16:55)
[2017-06-16] MEDS: PRAMIPEXOLE 0.25 MG TABLET PO SCH (20:17)
[2017-06-16] MEDS: IBUPROFEN 600 MG TABLET PO PRN (20:17)
[2017-06-16] MEDS: CYCLOBENZAPRINE 10 MG TABLET PO SCH (20:18)
[2017-06-16] MEDS: GABAPENTIN 300 MG CAPSULE PO SCH (20:19)
[2017-06-16] MEDS ORDERED: FLUTICASONE/SALMETEROL 250/50 INHALER #14 INH SCH (21:00)
[2017-06-17] MEDS: IBUPROFEN 600 MG TABLET PO PRN (04:15)
[2017-06-17] MEDS: oxyCODONE HCL 5 MG TABLET PO PRN ×2 (04:16→10:55)
[2017-06-17 04:35] LABS: Basophils # (Auto) 0 K/mcL (0.0-0.3); Basophils % (Auto) 0.2 % (0.0-2.0); Eosinophils # (Auto) 0.2 K/mcL (0.0-0.7); Eosinophils % (Auto) 5.1 % (0.0-7.0); Granulocytes % (Auto) 73.6 % (38.0-78.0); Lymphocytes # (Auto) 0.5 K/mcL (1.5-4.8); Lymphocytes % (Auto) 11.3 % (15.5-49.0); Mean Cell Volume 101.4 fL (80.0-100.0); Mean Corpuscular HGB Conc 35.3 g/dL (31.0-36.0); Mean Corpuscular Hemoglobin 35.8 pg (26.0-34.0); Monocytes # (Auto) 0.5 K/mcL (0.1-0.9); Monocytes % (Auto) 9.8 % (1.0-12.0); Platelet Count 102 K/mcL (140-440); RBC 2.17 M/mcL (4.50-5.90)
[2017-06-17 05:07] LABS: ALT/SGPT 53 U/l (0-40); Albumin 3.9 gm/dL (3.2-5.2); Albumin/Globulin Ratio 1.2 (1.0-2.3); Alkaline Phosphatase 112 U/L (39-117); Bilirubin,Direct 0.3 mg/dL (0.0-0.3); Blood Urea Nitrogen 34 mg/dl (6-20); Gamma Glutamyl Transpeptidase 77 U/L (8-61); Uric Acid 4.1 mg/dL (2.5-8.0)
[2017-06-17] MEDS: 0.9 % SODIUM CHLORIDE 10 ML SYRINGE IV SCH ×2 (05:56→12:48)
--- NOTE | 2017-06-17 07:12 | Nephrology Progress Note ---
Subjective Patient information: Note initiated : 06/17/17 at 7:10 am Patient: Hardeep Diaz 56 y/o M admitted on 06/14/17 for SOB, Fever, Weakness/ Sepsis, Renal Failure. Chief Complaint: Weakness. Principal diagnosis: ESRD Interval history: Hardeep Diaz is a 56-year-old male with end stage renal disease on chronic hemodialysis (through left arm AV fistula, on TTS, at [facility], followed by Dr. Hu ), sent to ED after dialysis for fever and admitted on 06/14/17. Blood cultures growing Staph aureus. Pertinent ROS: No new symptoms. Left leg pain. No chest pain or shortness of breath. Objective - Vital Signs Vital signs: Vital Signs Temp Pulse Pulse Resp BP BP Pulse Ox 06/17/17 04:18 97.5 F 66 16 129/61 98 06/17/17 00:35 98 06/17/17 00:00 98.3 F 16 112/72 88 L 06/16/17 22:00 100.1 F H 81 16 142/58 91 06/16/17 21:55 100.1 F H 06/16/17 19:35 99.3 F H 06/16/17 19:28 100.2 F H 16 132/65 94 06/16/17 18:58 70 92 06/16/17 16:00 99.8 F H 18 155/59 94 06/16/17 14:46 97.6 F 89 167/75 06/16/17 14:20 81 164/68 06/16/17 13:50 78 122/69 06/16/17 13:20 79 134/78 06/16/17 12:52 79 133/60 06/16/17 12:20 78 148/74 06/16/17 11:58 97 F 16 148/57 96 06/16/17 11:51 75 149/65 06/16/17 11:20 70 148/51 06/16/17 11:00 97.9 F 73 137/57 06/16/17 09:00 16 95 06/16/17 08:00 97.8 F 66 16 119/63 100 06/16/17 07:32 97.8 F 66 16 119/63 95 Intake and Output 06/16/17 06/17/17 06/17/17 21:59 05:59 13:59 Intake Total 720 / 720 860 / 860 Output Total 2600 / 2600 Balance -1880 / -1880 860 / 860 Intake: Oral 720 / 720 860 / 860 Output: Hemodialysis UF 2600 / 2600 Other: Meal Dinner Sherbert, crackers Percent of Meal Consumed 100% 100% Feeding Ability Independent # Voids 0 Weight 216 lb 9.6 oz Intake & Output: Intake & Output 06/16/17 06/17/17 06/17/17 21:59 05:59 13:59 Intake Total 720 / 720 860 / 860 Output Total 2600 / 2600 Balance -1880 / -1880 860 / 860 Weight 216 lb 9.6 oz Intake: Oral 720 / 720 860 / 860 Output: Hemodialysis UF 2600 / 2600 Other: Meal Dinner Sherbert, crackers Percent of Meal Consumed 100% 100% Feeding Ability Independent # Voids 0 - General Appearance General appearance: appears started age EENT: mucous membranes moist Neck: supple Respiratory: clear Cardiology: normal S1, normal S2 Gastrointestinal: no tenderness Integumentary: warm and dry Neurologic: no focal deficit, alert and oriented x3 Musculoskeletal: no erythema, no cyanosis Psychiatric: mood/affect appropriate, cooperative - Lab 06/17/17 03:50 06/17/17 03:50 Most recent lab results Calcium 8.9 mg/dl (8.6-10.4) 06/17/17 03:50 Phosphorus 5.1 mg/dL (2.7-4.5) H 06/17/17 03:50 Magnesium 2.1 mg/dL (1.6-2.5) 06/17/17 03:50 Assessment and Plan (1) ESRD (end stage renal disease) on dialysis Usual days TTS. Last hemodialysis on 06/17/17. Status: Chronic Priority: Medium (2) Hyperkalemia, diminished renal excretion Status: Resolved Priority: Medium (3) Anemia due to end stage renal disease Status: Chronic Priority: Medium (4) Staphylococcus aureus bacteremia with sepsis US Left brachial artery to cephalic vein fistula: Fistula is patent. Probable small pseudoaneurysm measuring approximately 10 mm. Estimated 30% diameter stenosis approximately 4 cm distal to the fistula origin. No hemodynamically significant stenosis. Echo report pending. Status: Acute Priority: High
[2017-06-17] MEDS ORDERED: LEVOTHYROXINE 25 MCG TABLET PO SCH (07:30)
[2017-06-17] MEDS: INSULIN LISPRO 1 UNIT/0.01 ML UNIT SQ SCH ×2 (07:49→12:49)
[2017-06-17] MEDS: cefTRIAXone 2 GM in DEXTROSE 5% IN WATER 50 ML IV SCH (09:00)
[2017-06-17] MEDS ORDERED: amLODIPine 5 MG TABLET PO SCH (09:00)
[2017-06-17] MEDS ORDERED: TAMSULOSIN 0.4 MG CAPSULE PO SCH (09:00)
[2017-06-17] MEDS: HEPARIN 5,000 UNIT/ML VIAL SQ SCH (10:52)
[2017-06-17] MEDS: FLUTICASONE/SALMETEROL 250/50 INHALER #14 INH SCH (10:53)
[2017-06-17] MEDS: PRAMIPEXOLE 0.25 MG TABLET PO SCH (10:53)
[2017-06-17] MEDS: CARVEDILOL 12.5 MG TABLET PO SCH (10:54)
[2017-06-17] MEDS: ESCITALOPRAM 20 MG TABLET PO SCH (10:54)
[2017-06-17] MEDS: GABAPENTIN 300 MG CAPSULE PO SCH (10:57)
--- NOTE | 2017-06-17 12:37 | Transfer Summary ---
Transfer Discharge Sum: Prov Patient information: Note initiated : 06/17/17 at 12:23 pm Service Date, if different from initiated Date: [] Patient: Hardeep Diaz 56 y/o M admitted on 06/14/17 for SOB, Fever, Weakness/ Sepsis, Renal Failure. Chief Complaint: [] Date of admission: 06/14/17 19:25 Discharge Date: 06/17/17 Consults: 06/14/17 18:26 Consult to Physician [CONS] Stat Comment: Consulting Provider: Rosa Arguelles Reason For Exam: Physician to Consult Receiving physician/facility: Dr Herb Brown Hospitalist at [facility] Transfer Discharge Sum: Diag - Discharge Diagnosis (1) Staphylococcus aureus bacteremia Status: Acute Transfer Discharge Sum: Med - Medications Active and Home Medications: Home Medications Cyclobenzaprine HCl 10 mg PO HS 10/13/14 [History Confirmed 06/14/17] Lasix 40 mg PO DAILY 10/13/14 [History Confirmed 06/14/17] Levothyroxine 25 mcg PO DAILY 10/13/14 [History Confirmed 06/14/17] Proair Hfa 1 - 2 puff IH Q4HP PRN 10/13/14 [History Confirmed 06/14/17] Hailee-Lamont Tablet 1 tab PO DAILY 10/13/14 [History Confirmed 06/14/17] Tamsulosin 0.4 mg PO DAILY 10/13/14 [History Confirmed 06/14/17] amLODIPine 5 mg PO DAILY 10/13/14 [History Confirmed 06/14/17] Carvedilol [Coreg] 25 mg PO BIDCC 06/14/17 [History Confirmed 06/14/17] Escitalopram [Lexapro] 20 mg PO DAILY 06/14/17 [History Confirmed 06/14/17] Fluticasone/Salmeterol [Advair 250-50 Diskus] 1 puff INH BID 06/14/17 [History Confirmed 06/14/17] Gabapentin [Neurontin] 300 mg PO BID 06/14/17 [History Confirmed 06/14/17] Insulin Aspart [Novolog] 10 units SQ AC 06/14/17 [History Confirmed 06/14/17] Phoslo 1 tablet PO 5XD 06/14/17 [History Confirmed 06/14/17] Pramipexole [Mirapex] 0.375 mg PO HS 06/14/17 [History Confirmed 06/14/17] Active Medications Acetaminophen (Tylenol) 650 mg PO Q6HP PRN PRN Reason: PAIN/FEVER > 101 Last Admin: 06/16/17 21:55 Dose: 650 mg Albuterol/Ipratropium (Duoneb) 3 ml NEB Q6HP PRN PRN Reason: Shortness Of Breath Or Wheezing Amlodipine Besylate (Norvasc) 5 mg PO DAILY [facility] Last Admin: 06/17/17 10:57 Dose: 5 mg Carvedilol (Coreg) 25 mg PO BIDCC [facility] Last Admin: 06/17/17 10:54 Dose: 25 mg Cyclobenzaprine HCl (Flexeril) 10 mg PO HS [facility] Last Admin: 06/16/17 20:18 Dose: 10 mg Dextrose (Dextrose 50%) 0 ml IV UD PRN PRN Reason: Hypoglycemia Diagnostic Test (Pha) (Accu-Chek) 1 each FS ACHS [facility] Last Admin: 06/17/17 07:48 Dose: 1 each Escitalopram Oxalate (Lexapro) 20 mg PO DAILY [facility] Last Admin: 06/17/17 10:54 Dose: 20 mg Gabapentin (Neurontin) 300 mg PO BID [facility] Last Admin: 06/17/17 10:57 Dose: 300 mg Glucose (Insta-Glucose) 15 gm PO PRN PRN PRN Reason: Hypoglycemia Heparin Sodium (Porcine) (Heparin) 5,000 unit SQ Q12 [facility] Last Admin: 06/17/17 10:52 Dose: 5,000 unit Ceftriaxone Sodium 2 gm/ (Dextrose) 50 mls @ 100 mls/hr IV Q24H [facility] Last Admin: 06/17/17 09:00 Dose: 100 mls/hr Ibuprofen (Motrin) 600 mg PO TIDP PRN PRN Reason: PAIN/FEVER > 101 Last Admin: 06/17/17 04:15 Dose: 600 mg Insulin Human Lispro (Humalog) 0 unit SQ ACHS [facility] PRN Reason: Protocol Last Admin: 06/17/17 07:49 Dose: Not Given Levothyroxine Sodium (Synthroid) 25 mcg PO QAMAC [facility] Last Admin: 06/17/17 07:51 Dose: 25 mcg Naloxone HCl (Narcan) 0.1 mg IV Q2MIN PRN PRN Reason: Opiate Reversal Ondansetron HCl (Zofran) 4 mg IV Q4HP PRN PRN Reason: Nausea And Vomiting Oxycodone HCl (Roxicodone) 5 mg PO Q4HP PRN PRN Reason: Pain Last Admin: 06/17/17 10:55 Dose: 5 mg Pramipexole Dihydrochloride (Mirapex) 0.375 mg PO TID [facility] Last Admin: 06/17/17 10:53 Dose: 0.375 mg Fluticasone/Salmeterol (Advair 250-50 Diskus) 1 puff INH BID [facility] Last Admin: 06/17/17 10:53 Dose: 1 inh Sodium Chloride (Saline Flush) 10 ml IV Q8 [facility] Last Admin: 06/17/17 05:56 Dose: 10 ml Tamsulosin HCl (Flomax) 0.4 mg PO DAILY [facility] Last Admin: 06/17/17 10:55 Dose: 0.4 mg Vancomycin HCl (Vancomycin Per Pharmacy) 1 order IV UD [facility] Transfer Discharge Sum: Hosp Hospital course: TRANSFER DIAGNOSIS * Staph aureus bacteremia-unclear source. Negative MRI left hip/L/S spine. Negative Doppler ultrasound fistula site. negative TTE. repeat surveillance cultures positive for staph aureus. transferring to tertiary Center for ID consult/SOL * Sepsis s- clinically resolved. Continue antibiotic coverage-ceftriaxone/ vancomycin * Back/hip pain along with left lower extremity tenderness-negative imaging so far.myositis on MRI * ESRD on hemodialysis managed by nephrology * history of CAD * Hyperlipidemia * DM type II-Managed on sliding scale insulin * Hypertension- meds on hold due to sepsis * anxiety disorder on Lexapro * Pain management on oxycodone/cyclobenzapine [facility] H[facility]PITAL COURSE Mr. Diaz is a 56 year old Male with h/o End stage renal disease, who presents to the ER from the dialysis unit with complaints of fever and weakness. The patient reports he was doing okay until last night, when he woke up this morning he noticed that he was short of breath and having fever and chills, he also had back pain and pain in the left side of the hip associated with numbness in the left leg. The patient notes that this fever is associated with chills, he has been having some chronic cough. The patient went for his dialysis session, but he noted him to be febrile. He was also noted to be short of breath he was therefore sent to the emergency room after he completed his dialysis session for evaluation. In the ER the patient was noted to be febrile, with a temperature of more than 103. Tachycardic heart rate between 92-100, blood pressure was normal, he was saturating more than 90% on 2 L of oxygen, respiratory between 20-30. Chest x- ray was reported as negative. The patient had a normal WBC count but had more than 10% bands hemoglobin 10.5 platelet 141. Basic metabolic profile unremarkable, UA had some RBCs and a few WBCs, the patient underwent a CT abdomen and pelvis without contrast which was unrevealing for an acute process. The patient notes that the pain in the left hip is in the posterior aspect radiates down the leg was with movement better with rest. This is associated with decreased sensations in the entire left leg. He also attributes weakness in the left leg. He is unable to move the left leg however it is not sure during the history process whether there is true weakness or weakness secondary to pain. The patient also reported tingling in the medial three fingers of his palm. Patient was presented to the hospital for further management. During my evaluation in the ED I was concerned about this patient to have a possible epidural or paraspinal abscess or possibly hip arthritis. The patient is a dialysis patient and therefore we will try and get a stat MRI scan of the spine as well as the left hip as soon as possible Given that the patient has neurological weakness which he at least which is new , in the left leg, the patient would warrant an emergent evaluation. We do not have an senior technical analyst available in this hospital at this time patient is okay to go to [facility] for this study done. According to the ED physician blood cultures were drawn, Rocephin 1 g given. I will add 1500 mg of vancomycin June 15 Patient seen and examined, no acute overnight events, fever curve is better now. Patient's blood cultures positive for staph aureus. Repeat blood culture sent. She is on vancomycin and Rocephin at least for now. Nephrology consulted no urgent need for dialysis MRI of the spine hip reviewed it is negative for any acute inflammatory pathology I also did had these images reviewed by our radiologist and he also concluded that there is no evidence of infection in the hip spine or the SI joint I am unable to explain the patient's left-sided pain or weakness but this could be an exacerbation of chronic arthritis of the patient has had for many years Echocardiogram was performed there is no evidence of endocarditis on transthoracic echo. Ultrasound of the left upper extremity duplex is pending clinically there is no evidence of cellulitis at the dialysis access site If the patient responds to therapy he will at least need 4 weeks of IV antibiotics with vancomycin or penicillin depending upon the sensitivity Should he remain persistently bacteremic the patient will benefit from getting a tagged WBC scan and a transesophageal echo June 16-Patient doing well. Complains of persistent left lower extremity tenderness however in imaging did not reveal any evidence of localized abscess except for gluteal myositis on MRI. On antibiotic coverage-Rocephin/Vanco. Surveillance cultures pending. preliminary cultures staph aureus. Sensitivities pending. continue source evaluation if persistent bacteremia. Patient will need a minimum 14 days antibiotic coverage from last negative culture or longer if evidence of infective endocarditis. No overnight fever chills or concerns per staff. Tolerating diet and physical therapy along with hemodialysis. June 17-additional set of blood culture positive from the . Staph aureus on telemetry cultures. Sensitivities pending. On vancomycin and Rocephin. Case discussed with [place] infectious disease specialist is Dr. Emerson Goins, he recommended transesophageal echocardiogram for a high riskendovascular infection and recommends a minimum of 4-6 weeks IV antibiotics. However there were no beds available at [place] and hence transfer could not be initiated. Case was subsequently discussed at [facility] Hospitalist Dr. Opal Brown. Dr Brown graciously accepted patient for further evaluation of bacteremia that may include transesophageal echocardiogram/ID specialist consult/tagged white blood cell scan. Patient will be transferred via ground ambulance. Please call [facility] hospitalist cell phone number at [phone] for any questions - Time Spent with Patient Total time spent providing and/or coordinating transfer services: Greater than 30 minutes Transfer Discharge Sum: Exam - Constitutional Vitals: Vital Signs Temp Pulse Pulse Resp BP BP Pulse Ox 06/17/17 11:04 96.9 F L 65 15 135/62 95 06/17/17 07:56 97.4 F 63 16 142/69 95 06/17/17 04:18 97.5 F 66 16 129/61 98 06/17/17 00:35 98 06/17/17 00:00 98.3 F 16 112/72 88 L 06/16/17 22:00 100.1 F H 81 16 142/58 91 06/16/17 21:55 100.1 F H 06/16/17 19:35 99.3 F H 06/16/17 19:28 100.2 F H 16 132/65 94 06/16/17 18:58 70 92 06/16/17 16:00 99.8 F H 18 155/59 94 06/16/17 14:46 97.6 F 89 167/75 06/16/17 14:20 81 164/68 06/16/17 13:50 78 122/69 06/16/17 13:20 79 134/78 06/16/17 12:52 79 133/60 Intake and Output 06/16/17 06/17/17 06/17/17 21:59 05:59 13:59 Intake Total 1220 / 1220 860 / 860 650 / 650 Output Total 2600 / 2600 Balance -1380 / -1380 860 / 860 650 / 650 Intake: IV 500 / 500 Oral 720 / 720 860 / 860 650 / 650 Output: Hemodialysis UF 2600 / 2600 Other: Meal Dinner Sherbert, crackers Breakfast Percent of Meal Consumed 100% 100% 100% Feeding Ability Independent Assist with Tray Set Up # Voids 0 Weight 216 lb 9.6 oz Transfer Discharge Sum: Data Procedures and tests throughout hospitalization: Transfer Discharge Sum: A/P - Problem Maintenance (1) Staphylococcus aureus bacteremia Status: Acute - Plan Functional capacity at transfer: independent ambulation Disposition: [facility] Quality Measure Queries - VTE Deep Vein Thrombosis/Pulmonary Embolism Present on Admission: No
== END 2017-06-17 14:45 | disposition short-term general hospital (02) | DRG 871 ==
LOC: ED 15:26 → ICU 19:25
PROVIDERS: ADMIT Internal Medicine; ATTEND Internal Medicine